=== PATIENT | male | born 1995 | race Caucasian/White ===

== ENCOUNTER 2025-04-04 02:59 | Emergency (ER) | payer MEDICAID, SELFPAY ==
[2025-04-04 03:00] VITALS: BMI 47.9
[2025-04-04 03:54] VITALS: BP 142/94; PULSE 127; RESP 24; TEMP 37; O2SAT 97
--- NOTE | 2025-04-04 05:36 | PD.EDRME ---
Rapid Medical Screening Exam RME Arrival date/time: 04/04/25 02:59 29M with no significant PMH presents to ED with wanting STD check including for yeast. Chief Complaint: General Adult/Misc Complain Vital signs: Vital Signs Temperature 98.6 F 04/04/25 03:54 Pulse Rate 127 H 04/04/25 03:54 Respiratory Rate 24 H 04/04/25 03:54 Blood Pressure 142/94 H 04/04/25 03:54 Pulse Oximetry (%) 97 04/04/25 03:54 Oxygen Delivery Method Room Air 04/04/25 03:54
--- NOTE | 2025-04-04 07:01 | PC.NURSE ---
no answer in lobby
--- NOTE | 2025-04-04 07:45 | PC.NURSE ---
no answer in lobby
--- NOTE | 2025-04-04 08:22 | PC.NURSE ---
no answer in lobby
== END 2025-04-04 08:23 | disposition left against medical advice (07) ==
LOC: SERX 04:51
PROVIDERS: Emergency Provider Emergency Medicine
DX: Z11.3 Encounter for screening for infections with a predominantly sexual mode of transmission (principal); Z53.29 Procedure and treatment not carried out because of patient's decision for other reasons
CPT/HCPCS: 81001; 86703; 86780; 87491; 87591; 87661; 99281

== ENCOUNTER 2025-04-04 10:39 | Emergency (ER) | payer MEDICAID, SELFPAY ==
[2025-04-04 11:45] VITALS: BP 129/72; PULSE 107; RESP 18; TEMP 36.6; O2SAT 94; BMI 44.1
--- NOTE | 2025-04-04 11:52 | EKG_ITS ---
[facility] Test Date: 2025-04-04 Pat Name: JACQUE RODARTE Department: Room: - Gender: Male [employer] Leader: : 1995 Requested By: Aliya Montes Order Number: [id number] Reading MD: Aliya Montes Measurements Intervals [place] Rate: 105 P: 27 DE: 155 QRS: 75 QRSD: 85 T: 48 QT: 305 QTc: 404 Interpretive Statements SINUS TACHYCARDIA POSSIBLE RIGHT VENTRICULAR CONDUCTION DELAY [RSR (QR) IN V1/V2] ABNORMAL RHYTHM ECG No previous ECG available for comparison /[id number]
--- NOTE | 2025-04-04 11:53 | PD.EDRME ---
Rapid Medical Screening Exam RME Arrival date/time: 04/04/25 10:39 Chief Complaint: General Adult/Misc Complain Time Seen by Provider: 04/04/25 11:50 Vital signs: Vital Signs Temperature 98 F 04/04/25 11:45 Pulse Rate 107 H 04/04/25 11:45 Respiratory Rate 18 04/04/25 11:45 Blood Pressure 129/72 04/04/25 11:45 Pulse Oximetry (%) 94 L 04/04/25 11:45 Oxygen Delivery Method Room Air 04/04/25 11:45 Vital signs reviewed by provider: Yes RME Narrative: Patient presents with weakness for the last 2 days. Has a history of methamphetamine use and alcohol use. Is currently in a rehab program for both. Denies fevers chills nausea vomiting chest pain palpitations abdominal pain melena bloody stools. Also wants to be tested for sexually transmitted infections. Denies any penile discharge.
[2025-04-04 12:25] LABS: Basophils # (Auto) 0.0 Thou/mm3 (0.0-0.2); Basophils % (Auto) 0 % (0-2.5); Eosinophils # (Auto) 0.1 Thou/mm3 (0.0-0.5); Eosinophils % (Auto) 1 % (0-10); Hematocrit 47.7 % (41.0-53.0); Hemoglobin 16.2 g/dL (13.5-16.0); Immature Granulocytes Auto 0.03 Thou/mm3 (0.00-0.00); Lymphocytes # (Auto) 2.7 Thou/mm3 (1.0-4.8); Lymphocytes % (Auto) 23 % (10-50); Mean Corpuscular HGB Conc 34.0 g/dl (31.0-37.0); Mean Corpuscular Hemoglobin 30.7 pg (25.0-35.0); Mean Corpuscular Volume 91 fL (80-100); Monocytes # (Auto) 1.2 Thou/mm3 (0.0-0.8); Monocytes % (Auto) 10 % (0-12); Neutrophils # (Auto) 7.5 Thou/mm3 (1.8-7.7); Neutrophils % (Auto) 65 % (37-80); Nucleated Red Blood Cell # 0.00 Thou/mm3 (0.00-0.00); Nucleated Red Blood Cell % 0 /100 WBC (0); Platelet Count 302 Thou/mm3 (140-440); RDW Standard Deviation 42.4 fL (35.1-43.9); Red Blood Count 5.27 Miln/mm3 (4.50-5.90); White Blood Count 11.6 Thou/mm3 (3.8-10.6)
[2025-04-04 12:37] LABS: Alanine Aminotransferase 40 U/L (10-49); Albumin, Serum 4.3 gm/dL (3.5-5.0); Albumin/Globulin Ratio 1.9 (1.2-2.2); Alkaline Phosphatase 149 U/L (46-116); Anion Gap 8 (7-16); Aspartate Amino Transferase 30 U/L (0-34); B-Type Natriuretic Peptide < 20 pg/mL (0-100); BUN/Creatinine Ratio 7 Ratio (12-20); Bilirubin,Total 0.4 mg/dL (0.3-1.2); Blood Urea Nitrogen 8 mg/dL (9-23); Calcium 9.8 mg/dL (8.3-10.6); Calcium (Corrected) 9.8 mg/dL (8.5-10.1); Carbon Dioxide 29.7 mMol/L (20.0-31.0); Chloride 105 mMol/L (98-107); Creatinine (Component) 1.2 mg/dL (0.6-1.3); Estimated Creatinine Clearance 118.2 mL/min (>60); Globulin 2.3 gm/dL (2.3-3.5); Glucose 93 mg/dL (74-106); Osmolality,Calculated 283 (275-295); Potassium 3.8 mMol/L (3.4-5.1); Sodium 143 mMol/L (136-145); Total Protein 6.6 gm/dL (5.7-8.2); eGFR > 60 See Note
[2025-04-04 12:59] LABS: Syphilis Nonreactive (Nonreactive)
[2025-04-04 13:18] LABS: Collection Type, Urine Clean Catch
[2025-04-04 13:43] LABS: Bilirubin,Urine Negative (Negative); Blood,Urine Negative (Negative); Calcium Oxalate Crystals,Urine 2+; Clarity,Urine Clear (Clear/Hazy); Color,Urine Yellow (Lt Yel-Yel); Culture Indicated,Urine Not Indicated; Glucose, Urine Negative (Negative); Hyaline Casts,Urine < 1 /hpf (0-1); Ketones,Urine Negative (Negative); Leukocyte Esterase,Urine Negative (Negative); Nitrite,Urine Negative (Negative); PH,Urine 5.5 (5.0-7.0); Protein,Urine 1+ (Neg - Trace); RBC,Urine 2 /hpf (0-3); Specific Gravity,Urine 1.029 (1.001-1.035); Squamous Epithelial Cell,Urine < 1 /hpf (0-5); Urobilinogen,Urine Negative mg/dL (0.0-1.0); WBC,Urine < 1 /hpf (0-5)
[2025-04-04 13:45] LABS: Sperm,Urine Present
[2025-04-04 13:50] LABS: Amphetamine/Metham Scrn,Ur OB Positive (Negative); Benzoylecgonine Screen, Ur OB Negative (Negative); Opiate Screen,Urine OB Negative (Negative); THC Screen,Urine OB Positive (Negative)
[2025-04-04 14:03] LABS: HIV Rapid (Source Pt) Non-Reactive
--- NOTE | 2025-04-04 14:59 | PD.EDADULT ---
ED General RME/HPI General Chief complaint: General Adult/Misc Complain Stated complaint: WANTS TO BE CHECKED FOR STD'S Time Seen by Provider: 04/04/25 11:50 Arrival date/time: 04/04/25 10:39 Limitations: no limitations RME / HPI RME / HPI narrative: Patient presents with weakness for the last 2 days. Has a history of methamphetamine use and alcohol use. Is currently in a rehab program for both. Denies fevers chills nausea vomiting chest pain palpitations abdominal pain melena bloody stools. Also wants to be tested for sexually transmitted infections. Denies any penile discharge. Related Data Home Medications ?Medication ?Instructions ?Recorded ?Confirmed furosemide 20 mg tablet 1 tab PO 1XD 04/12/22 04/12/22 Previous Rx's ?Medication ?Instructions ?Recorded cefuroxime axetil 500 mg tablet 500 mg PO BID #14 tabs 06/30/22 mupirocin 2 % topical ointment 1 applic topical TID #22 grams 04/07/25 Allergies Allergy/AdvReac Type Severity Reaction Status Date / Time No Known Allergies Allergy Verified 04/07/25 05:02 ED Exam General Limitations: Present no limitations General appearance: Present alert and in no apparent distress Head Head exam: Present atraumatic and normocephalic Eye Eye exam: Present normal appearance, PERRL and EOMI ENT ENT exam: Present normal exam, normal oropharynx and mucous membranes moist Neck Neck exam: Present normal inspection, full ROM and trachea midline; Absent tenderness Chest Chest inspection: Present symmetric chest wall rise Respiratory Respiratory exam: Present normal lung sounds bilaterally; Absent respiratory distress, wheezes or stridor Cardiovascular Cardiovascular exam: Present normal rhythm and tachycardia Abdominal Exam Abdominal exam: Present soft; Absent distention, tenderness, guarding or rebound Extremities Exam Extremities exam: Present normal inspection and full ROM; Absent tenderness Neurological Exam Neurological exam: Present alert, oriented X3, CN II-XII intact and normal gait; Absent motor sensory deficit Skin Skin exam: Present warm and dry Course Quality Measures none Orders Category Date Time Status EKG (ED Only) Stat Exams 04/04/25 11:52 Draft BNP [B-Type Natriuretic Peptide] Stat Lab 04/04/25 12:06 Completed CBC Stat Lab 04/04/25 12:06 Completed CMP [Comprehensive Metabolic Panel] Stat Lab 04/04/25 12:06 Completed Chlamydia/GC/TV - PCR Stat Lab 04/04/25 12:21 Completed Drug Screen OB, Ur (Inpatient) Stat Lab 04/04/25 12:21 Completed HIV Rapid (Source Pt) Stat Lab 04/04/25 12:06 Completed Syphilis Stat Lab 04/04/25 12:06 Completed UA, C/S IF [Urinalysis, C/S if Indicated] Stat Lab 04/04/25 12:21 Completed Vital Signs Vital signs: Vital Signs Temperature 98 F 04/04/25 11:45 Pulse Rate 107 H 04/04/25 11:45 Respiratory Rate 18 04/04/25 11:45 Blood Pressure 129/72 04/04/25 11:45 Pulse Oximetry (%) 94 L 04/04/25 11:45 Oxygen Delivery Method Room Air 04/04/25 11:45 Discharge Plan Plan Patient Disposition: Elopement Prescriptions/Referrals Prescriptions/Med Rec: No Action furosemide 20 mg tablet 1 tab PO 1XD Patient Comments: TAKE 1 TABLET BY MOUTH EVERY MORNING mupirocin 2 % ointment 1 applic topical TID Qty: 22 0RF cefuroxime axetil 500 mg tablet 500 mg PO BID Qty: 14 0RF Referrals: No Primary/Family,Physician [Primary Care Provider] - In 1 week Problem List Clinical Impression: Weakness Patient/Caregiver Discharge Instructions Education Materials: ED Weakness (Uncertain Cause) Additional Instructions: Please take your prescription medications as prescribed by your primary care doctor. I highly recommend that you continue your AA meetings to help with your sobriety. Return to the emergency department immediately if you have any worsening symptoms or new symptoms or concerns Print Language: Norwegian MDM Narrative MDM hospital course: Patient is a 29-year-old male with medical history notable for CHF, methamphetamine use, alcohol abuse currently in remission is in Emergency Department concerns for feeling tired, concern for exposures to sexually-transmitted infections. Vital signs and exam as listed. Concern for metabolic disturbance, intoxication, CHF exacerbation, viral syndrome, sexual transmitted infection among others. Labs with leukocytosis 11.6, no left shift, hemoglobin 16.2 no acute electrolyte abnormality, no acute evidence of liver dysfunction, BNP is not elevated, urinalysis without evidence of infection urinalysis is positive for marijuana and methamphetamines. Patient is not reactive to syphilis. Does not have HIV. Chlamydia and gonorrhea as well as trichomonas are pending. EKG performed today at 1159 notable for sinus tachycardia, normal intervals, nonspecific T wave changes, no cardiac alert. COVID and flu negative. On reevaluation patient patient hemodynamically stable no distress will discharge home close return precautions follow-up with primary care doctor. Clinical Information Provided by patient Medical Records Reviewed [facility] Meds/Rx Considered, not Ordered None Labs/Rad/Tests considered, not Ordered Describe details: See above Chronic Illness/Social Conditions which may negatively complicate care or outcome(s)-explain: CHF/CAD/Cardiac illness and other (Polysubstance use) EKG EKG Interpretation narrative: Interpretation in the [facility] Lab Interpretation Labs: interpreted by me and see narrative above Imaging Imaging interpretation: interpreted by me and see narrative above Medication Administration(s) none Diagnosis Differential diagnosis: Weakness, polysubstance use Dispositon Disposition: Discharge Home
[2025-04-04 15:55] LABS: Chlamydia trachomatis PCR Negative (Not Detect); Neisseria Gonorrhoeae DNA PCR Negative (Not Detect); Trichomonas Negative (Negative)
--- NOTE | 2025-04-04 17:05 | PC.NURSE ---
CALLED PATIENT FOR DISCHARGE INSTRUCTIONS AND ASSESSMENT, NO ANSWER RECEIVED.
--- NOTE | 2025-04-04 17:16 | PC.NURSE ---
NA x2 [id number] for discharge
--- NOTE | 2025-04-04 17:30 | PC.NURSE ---
NAx3 [id number] for discharge
== END 2025-04-04 17:30 | disposition left against medical advice (07) ==
PROVIDERS: Emergency Provider Emergency Medicine
DX: Z11.3 Encounter for screening for infections with a predominantly sexual mode of transmission (principal)
CPT/HCPCS: 36415; 80053; 80307; 81001; 83880; 84484; 85025; 86780; 87491; 87591; 87661; 99283

== ENCOUNTER 2025-04-07 05:00 | Emergency (ER) | payer MEDICAID, SELFPAY ==
[2025-04-07 05:01] VITALS: BP 175/83; PULSE 109; RESP 18; TEMP 36.8; O2SAT 98; BMI 44.2
--- NOTE | 2025-04-07 05:37 | PD.EDSKIN ---
ED Skin Abcess FB-RME/HPI General Chief complaint: Skin/Abscess/Foreign Body Stated complaint: stepped on nail Time Seen by Provider: 04/07/25 05:29 Arrival date/time: 04/07/25 05:00 This is a case of 29-year-old male with no medical history came in in the emergency room due to punctured wound on the left foot history of present illness started 3 days prior to arrival in the emergency room when the patient stepped on a nail and sustained punctured wound patient tetanus shot is not up-to-date now with some redness but no discharge and pain thus decided to sought consult in the emergency ROOM Limitations: no limitations Related Data Home Medications ?Medication ?Instructions ?Recorded ?Confirmed furosemide 20 mg tablet 1 tab PO 1XD 04/12/22 04/12/22 Previous Rx's ?Medication ?Instructions ?Recorded cefuroxime axetil 500 mg tablet 500 mg PO BID #14 tabs 06/30/22 cephalexin 500 mg capsule 500 mg PO QID 10 days #40 caps 04/07/25 mupirocin 2 % topical ointment 1 applic topical TID #22 grams 04/07/25 Allergies Allergy/AdvReac Type Severity Reaction Status Date / Time No Known Allergies Allergy Verified 04/07/25 05:02 Review of Systems Review of Systems Systems Reviewed: All systems reviewed, normal except as documented Constitutional Constitutional: Reports system reviewed and no additional complaints, except as documented and Reports as per HPI Cardiovascular Cardiovascular: Reports system reviewed and no additional complaints, except as documented and Reports as per HPI Respiratory Respiratory: Reports system reviewed and no additional complaints, except as documented and Reports as per HPI Gastrointestinal Gastrointestinal: Reports system reviewed and no additional complaints, except as documented and Reports as per HPI Genitourinary Genitourinary: Reports system reviewed and no additional complaints, except as documented and Reports as per HPI Musculoskeletal Musculoskeletal: Reports system reviewed and no additional complaints, except as documented and Reports as per HPI Neurologic Neurologic: Reports system reviewed and no additional complaints, except as documented and Reports as per HPI Past Medical History Past Medical History CARDIAC: Negative Congestive Heart Failure RESPIRATORY: Negative Chronic Obstructive Pulmonary Disease (COPD) GENITOURINARY: Negative Renal Disease ENDOCRINE: Negative Diabetes Mellitus Type 1 or Diabetes Mellitus Type 2 Social History SMOKING STATUS: Former smoker ED Exam General Limitations: Present no limitations General appearance: Present alert, in no apparent distress and other (Patient is awake alert oriented not in distress nontoxic looking well-hydrated well-nourished) Head Head exam: Present atraumatic, normocephalic and normal inspection Eye Eye exam: Present normal appearance, PERRL and EOMI ENT ENT exam: Present normal exam, normal oropharynx and mucous membranes moist Neck Neck exam: Present normal inspection, full ROM and trachea midline; Absent tenderness Chest Chest inspection: Present normal inspection and symmetric chest wall rise; Absent tenderness Respiratory Respiratory exam: Present normal lung sounds bilaterally; Absent respiratory distress, wheezes, stridor, accessory muscle use or prolonged expiratory phase Cardiovascular Cardiovascular exam: Present regular rate, normal rhythm and normal heart sounds; Absent bradycardia, tachycardia, irregular rhythm, systolic murmur or diastolic murmur Abdominal Exam Abdominal exam: Present soft and normal bowel sounds Extremities Exam Extremities exam: Present normal inspection and full ROM Back Exam Back exam: Present normal inspection and full ROM Neurological Exam Neurological exam: Present alert, oriented X3, CN II-XII intact, normal gait and reflexes normal; Absent motor sensory deficit Psychiatric Psychiatric exam: Present normal affect and normal mood Skin Skin exam: Present warm, dry, intact, normal color and other (Noted small puncture wound on the left plantar aspect mild tenderness no redness no swelling no discharge no abscess no cellulitis ROM intact neurovascular) Course Quality Measures none Orders Category Date Time Status TET,DIP/PERT AC (Adult)-Tdap [Boostrix Adult (Tdap) Med 04/07/25 05:39 Discontinued Vacc] 0.5 ml IMI .ONCE ONE Vital Signs Vital signs: Vital Signs Temperature 98.2 F 04/07/25 05:01 Pulse Rate 109 H 04/07/25 05:01 Respiratory Rate 18 04/07/25 05:01 Blood Pressure 175/83 H 04/07/25 05:01 Pulse Oximetry (%) 98 04/07/25 05:01 Oxygen Delivery Method Room Air 04/07/25 05:01 Oxygen saturation is 98% in room air Skin / Abscess / Foreign Body MDM Narrative MDM Narrative:: This is a case of 29-year-old male with no medical history came in in the emergency room due to punctured wound on the left foot history of present illness started 3 days prior to arrival in the emergency room when the patient stepped on a nail and sustained punctured wound patient tetanus shot is not up-to-date now with some redness but no discharge and pain thus decided to sought consult in the emergency ROOM physical examination patient is awake alert oriented not in distress nontoxic looking well-hydrated well-nourished patient noted to have a punctured wound on the left plantar aspect with some redness and tenderness no abscess no cellulitis the rest of the physical examination is normal patient was given Tdap here in the emergency room and was discharged with cephalexin patient will follow-up with PCP in 2 days for reevaluation and for any worsening symptoms return to the emergency room immediately or call 911 Patient was discharged with comfortable condition walking with stable gait. Patient verbalized no further complains explained diagnosis and answered patient question. Patient is comfortable with the proposed management plan including the need to follow up with his/her primary care physician and any specialist if applicable Discussed patient for any urgent condition or worsening sx, He/She needed to go to emergency room immediately or call 911. Patient acknowledge the responsibility to follow up as instructed and to monitor her/his symptoms. For any persistence of the symptoms for more than 3-5 days return precaution advised. Discussed the result of the test and was given printed discharge instruction Patient data External records reviewed:: [facility] previous records Clinical information provided by:: patient Social determinants that could affect healthcare access:: none Patient has the following chronic illnesses:: None How is presenting disease/condition affected by chronic disease/condition?: no chronic disease Evaluation data The following diagnostics were reviewed and interpreted by me:: other (specify) Lab and/or radiology exams considered but not ordered:: None Interpretation Summary: None Medications / Prescriptions Medications or Prescriptions considered but not ordered:: Given Medication administrations:: Medication Administration History Discontinued Medications Diphtheria/Tetanus/Acell Pertussis (Diphth,Pertuss(Acell),Tet Vac 0.5 Ml Syr- Adult) 0.5 ml IMi .ONCE ONE Stop: 04/07/25 05:40 Given Consultations Consultation(s) initiated? (list below): No Diagnosis Skin/Abscess Differential Diagnosis: other (Punctured wound) Most likely diagnosis given after review of the tests above:: Puncture wound Admission Indicated Admission indicated?: not indicated Explain why admission is indicated or not indicated:: Not indicated Admission Request Was there a request for admission?: No Disposition Plan Disposition Plan: Discharge Discharge Attestation Discharge Attestation: The patient and all family members were given an opportunity to ask questions and understood the discharge instructions. Discharge instructions specifically effects, indications for sooner follow up or return to the emergency department, and the expected course of current diagnosis. Patient condition: Stable Discharge Plan Plan Patient Disposition: HOME (Self Care) Patient condition on transfer: Stable Prescriptions/Referrals Prescriptions/Med Rec: New cephalexin 500 mg capsule 500 mg PO QID 10 Days Qty: 40 0RF mupirocin 2 % ointment 1 applic topical TID Qty: 22 0RF No Action furosemide 20 mg tablet 1 tab PO 1XD Patient Comments: TAKE 1 TABLET BY MOUTH EVERY MORNING cefuroxime axetil 500 mg tablet 500 mg PO BID Qty: 14 0RF Problem List Clinical Impression: Puncture wound of foot, left Patient/Caregiver Discharge Instructions Education Materials: ED Puncture Wound (Foot) Additional Instructions: Follow-up with your primary care physician in 2 days for reevaluation worsening symptoms or any emergent concern call 911 or go to the nearest emergency room take your medication as directed finish the course of antibiotic keep the area clean and dry Print Language: Moroccan Stand Alone Forms: Mikayla Award Info., Patient Portal Info Letter PA/CHANNEL MARKETING MANAGER Supervising Physician PA/CHANNEL MARKETING MANAGER Supervising Physician: Dr. KEVIN BARRON
[2025-04-07] MEDS: DIPHTH,PERTUSS(ACELL),TET VAC 0.5 ML SYR- ADULT IMi (05:52)
== END 2025-04-07 06:11 | disposition home or self-care (01) ==
LOC: SERX 05:37
PROVIDERS: Emergency Provider Emergency Medicine; PCP Physician Assistant
DX: S91.332A Puncture wound without foreign body, left foot, initial encounter (principal); W45.0XXA Nail entering through skin, initial encounter; Z23 Encounter for immunization
CPT/HCPCS: 90471; 90715; 99281